=== PATIENT | female | born 1965 | race African-American/Black ===

== ENCOUNTER 2018-07-10 09:44 | Emergency (ER) | payer BC ==
[~2018-07-10] VITALS: Ht 170.2 cm; Wt 112.7 kg
[2018-07-10 09:48] VITALS: Ht 170.2 cm; Wt 112.7 kg
[2018-07-10] MEDS ORDERED: MAXZIDE 75/501 TAB PO (09:49)
[2018-07-10] MEDS ORDERED: KLOR-CON/EF 2525 MEQ (09:49)
[2018-07-10] MEDS ORDERED: B-12 DOTS500 MCG PO (09:50)
[2018-07-10] MEDS ORDERED: VITAMIN D31000 UNI2 PO (09:50)
[2018-07-10] MEDS ORDERED: EZFE 200200 MG PO (09:50)
[2018-07-10 10:20] LABS: BASOPHILS 0.4 % (0-2); EOSINOPHILS 3.5 % (0-7); HEMATOCRIT 43.7 % (36.0-48.0); HEMOGLOBIN 14.3 g/dL (12-16); IMMATURE GRANULOCYTES 0.1 % (0-5); LYMPHOCYTES 44.1 % (15-50); MCH 29.2 pg (26.0-34.0); MCHC 32.7 g/dL (31.0-37.0); MCV 89.4 fL (80.0-100.0); MEAN PLATELET VOLUME 9.5 fL (7.4-10.4); MONOCYTES 5.1 % (2-11); NEUTROPHILS 46.8 % (40-80); PLATELET COUNT 312 10x3/uL (130-400); RBC 4.89 10x6/uL (4.00-5.40); RDW 13.2 % (11.5-14.5); WBC 6.9 10x3/uL (4.8-10.8)
[2018-07-10 10:34] LABS: ALBUMIN 3.4 g/dL (3.4-5.0); ALKALINE PHOSPHATASE 119 U/L (46-116); ALT (SGPT) 11 U/L (10-68); BILIRUBIN - TOTAL 0.38 mg/dL (0.2-1.3); CALC OSMOLALITY 282 mosm/kg (275-300); CALCIUM 9.2 mg/dL (8.5-10.1); CARBON DIOXIDE 33.4 mmol/L (21.0-32.0); CHLORIDE - SERUM 103 mmol/L (98-107); CREATININE - SERUM 0.9 mg/dL (0.6-1.3); GLUCOSE 108 mg/dL (74-106); POTASSIUM - SERUM 3.5 mmol/L (3.5-5.1); PROTEIN - SERUM 8.6 g/dL (6.4-8.2); SODIUM 141 mmol/L (136-145); UREA NITROGEN 15 mg/dL (7-18); eGFR NON AFRICAN AMERICAN 70 mL/min (90-120)
[2018-07-10 10:44] LABS: INR 1.07 (0.85-1.17); PROTIME 13.4 SECONDS (11.6-15.0)
[2018-07-10 10:46] LABS: CKMB 1.3 U/L (0.0-3.6); CREATINE KINASE 168 UL (21-215); PRO BNP 18 pg/mL (0-125)
[2018-07-10 10:47] LABS: TROPONIN-I < 0.017 ng/mL (0.000-0.060)
[2018-07-10] MEDS ORDERED: VENTOLIN HFA18 GM INH (12:12)
[2018-07-10] MEDS ORDERED: LEVAQUIN750 MG PO (12:12)
[2018-07-10] MEDS ORDERED: MEDROL DOSE PACK4 MG PO (12:13)
[2018-07-10] MEDS ORDERED: DIMAPHEN DM EL118 ML PO (12:13)
[2018-07-10 13:10] VITALS: BP 134/82
== END 2018-07-10 13:10 | disposition home or self-care (01) ==
LOC: D.ER 09:44
PROVIDERS: Family Medicine
DX: R07.9 Chest pain, unspecified (principal); R05 Cough; J18.9 Pneumonia, unspecified organism